=== PATIENT | female | born 1990 ===

== ENCOUNTER → 2020-12-12 01:44 | Observation (INO) ==
[2020-12-12 00:01] LABS: Bacteria,Urine Occasional /HPF (Few); Bilirubin,Urine Negative (Negative); Blood, Urine Negative (Negative); Glucose,Urine (UA) Negative (Negative); Ketones,Urine Negative (Negative); Mucus,Urine Many /LPF (Occasional); Nitrite,Urine Negative (Negative); Protein,Urine Negative; RBC,Urine <1 /HPF (0-4); Squamous Epithelial Cell,Urine Few /HPF (0-10); Urine Appearance CLOUDY (Clear); Urine Color Amber (Yellow); Urine Specific Gravity 1.021 (1.001-1.035)
[~2020-12-12 01:44] MED LIST: LACTATED RINGERS 1,000 ML IV ONE; LEVOFLOXACIN INJ 500 MG/100 ML PREMIX IV ONE
== END | disposition home or self-care (01) ==
LOC: N.LD
PROVIDERS: ADMIT Obstetrics & Gynecology; ATTEND Obstetrics & Gynecology